=== PATIENT | male | born 1985 | race Caucasian/White ===

== ENCOUNTER 2016-09-27 19:13 | Emergency (ER) | payer SELFPAY ==
[~2016-09-27] VITALS: Ht 182.9 cm; Wt 96.0 kg
[~2016-09-27 19:13] MED LIST: BACTRIM,SEPT1 TABLET PO; CLONIDINE HCL0.1 MG PO; NOHOMEMEDS; PYRIDIUM100 MG PO; SEROQUEL100 MG PO; VICODIN 5-3001 EACH PO; no home meds
[2016-09-27 20:23] LABS: CHLORIDE 105 mEq/L (99-109); POTASSIUM 4.4 mEq/L (3.7-5.4); SODIUM 143 mEq/L (136-147)
[2016-09-27 20:24] LABS: HEMATOCRIT 45.2 % (38.0-50.0); MCHC 34.1 G/DL (30.0-36.0); MCV 87.9 FL (86-99); MEAN PLAT.VOLUME 11.3 uM^3 (9.0-12.4); PLATELET COUNT 183 K/uL (156-360); RBC DIS.WIDTH-CV 13.5 % (11.8-14.6); RED BLOOD COUNT 5.14 M/uL (4.00-5.50); WHITE BLOOD COUNT 5.7 K/uL (4.1-10.2)
[2016-09-27 20:25] LABS: GLUCOSE 104 mg/dL (70-99)
[2016-09-27 20:26] LABS: ANION GAP 13 MEQ/L (2-14)
[2016-09-27 20:27] LABS: TOTAL BILIRUBIN 0.9 mg/dL (0.0-1.0)
[2016-09-27 20:28] LABS: ALKALINE PHOSPHATASE 75 IU/L (3-129)
[2016-09-27 20:29] LABS: GFR ESTIMATE (CALCULATED) > 59 mL/min/
[2016-09-27 20:30] LABS: UREA NITROGEN (BUN) 12 mg/dL (9-23)
[2016-09-27] MEDS ORDERED: ZOFRAN ODT4 MG PO (20:43)
[2016-09-27] MEDS ORDERED: FLOXIN OTIC SOLN5 ML LEFT EAR (20:43)
[2016-09-27 20:50] VITALS: BP 150/99
== END 2016-09-27 20:50 | disposition home or self-care (01) ==
LOC: EME 19:13 → EXP 19:13
DX: S09.91XA Unspecified injury of ear, initial encounter (principal); X58.XXXA Exposure to other specified factors, initial encounter; R11.0 Nausea; R74.0 Nonspecific elevation of levels of transaminase and lactic acid dehydrogenase [LDH]; R10.11 Right upper quadrant pain; F17.200 Nicotine dependence, unspecified, uncomplicated
CPT/HCPCS: 80053; 81003; 85027; 99281; 99283

== ENCOUNTER 2016-10-09 23:46 | Emergency (ER) | payer OTHER ==
[~2016-10-09] VITALS: Ht 182.9 cm; Wt 99.2 kg
[~2016-10-09 23:46] MED LIST changes: +FLOXIN OTIC SOLN5 ML LEFT EAR; +ZOFRAN ODT4 MG PO
[2016-10-10 00:44] VITALS: BP 146/102
== END 2016-10-10 00:47 | disposition home or self-care (01) ==
LOC: EME 23:46
PROC: 09C1XZZ Extirpation of Matter from Left External Ear, External Approach (ICD-10-PCS; principal; 2016-10-09)
DX: H61.22 Impacted cerumen, left ear (principal)
CPT/HCPCS: 99281; 99284

== ENCOUNTER 2016-11-04 10:15 | Emergency (ER) | payer OTHER ==
[~2016-11-04] VITALS: Ht 182.9 cm; Wt 99.9 kg
[2016-11-04] MEDS ORDERED: DOXYCYCLINE MO100 MG PO (13:01)
[2016-11-04 14:18] VITALS: BP 119/81
== END 2016-11-04 14:19 | disposition home or self-care (01) ==
LOC: EME 10:15
PROC: 0H9FXZZ Drainage of Right Hand Skin, External Approach (ICD-10-PCS; principal; 2016-11-04)
DX: L02.511 Cutaneous abscess of right hand (principal)
CPT/HCPCS: 99281; 99284; J7050

== ENCOUNTER 2016-12-23 13:12 | Emergency (ER) | payer OTHER ==
[~2016-12-23] VITALS: Ht 182.9 cm; Wt 89.9 kg
[~2016-12-23 13:12] MED LIST changes: +DOXYCYCLINE MO100 MG PO
[2016-12-23 13:27] VITALS: BP 130/86
[2016-12-23] MEDS ORDERED: CLEOCIN300 MG PO (16:30)
[2016-12-23] MEDS ORDERED: NAPROXEN500 MG PO (16:30)
== END 2016-12-23 16:46 | disposition home or self-care (01) ==
LOC: EME 13:12
DX: L02.412 Cutaneous abscess of left axilla (principal); L02.411 Cutaneous abscess of right axilla; B95.62 Methicillin resistant Staphylococcus aureus infection as the cause of diseases classified elsewhere; B19.20 Unspecified viral hepatitis C without hepatic coma; Z87.898 Personal history of other specified conditions; Z88.6 Allergy status to analgesic agent
CPT/HCPCS: 87070; 87075; 87077; 87147; 87186; 87205; 99281; 99284; J1885